=== PATIENT | female | born 1980 | race Asian ===

== ENCOUNTER 2016-04-15 06:15 | Inpatient (IN) | payer OTHER ==
[~2016-04-15] VITALS: Ht 152.4 cm; Wt 58.5 kg
[2016-04-15 07:11] LABS: HEMATOCRIT 38.4 % (36.0-47.0); HEMOGLOBIN 12.6 g/dL (12.0-15.5); RED BLOOD COUNT 4.68 x10^6/uL (3.50-5.40); RED CELL DISTRIBUTION WIDTH 17.4 % (11.5-14.5); WHITE BLOOD COUNT 6.8 x10^3/uL (4.0-11.0)
[2016-04-15] MEDS ORDERED: BUTORPHANOL 2 MG VIAL. IV PRN (07:15)
[2016-04-15] MEDS ORDERED: LIDOCAINE 1% PF 30 ML VIAL. INJ PRN (07:15)
[2016-04-15] MEDS ORDERED: OXYTOCIN 30 UNIT/500 ML PREMIX 500 ML IV PRN (07:15)
[2016-04-15] MEDS ORDERED: 0.9 % SODIUM CHLORIDE 10 ML DISP.SYRIN. IV PRN (07:15)
[2016-04-15] MEDS ORDERED: TERBUTALINE 1 MG/ML VIAL. SQ PRN (07:15)
[2016-04-15] MEDS ORDERED: IBUPROFEN 600 MG TABLET. PO PRN (07:15)
[2016-04-15] MEDS ORDERED: FENTANYL PF 100 MCG/2 ML VIAL. IV PRN (07:15)
[2016-04-15] MEDS ORDERED: ONDANSETRON PF 4 MG/2 ML VIAL. IV PRN (07:15)
[2016-04-15 07:36] LABS: CALCIUM 8.4 mg/dL (8.5-10.1); CREATININE 0.4 mg/dL (0.6-1.0); GFR 183.8; POTASSIUM 3.6 mmol/L (3.5-5.1)
[2016-04-15 07:42] LABS: ALBUMIN 2.9 g/dL (3.4-5.0); ALBUMIN/GLOBULIN RATIO 0.8 (1.0-1.7); TOTAL BILIRUBIN 0.4 mg/dL (0.2-1.0); TOTAL PROTEIN 6.7 g/dL (6.4-8.2)
[2016-04-15] MEDS: OXYTOCIN 30 UNIT/500 ML PREMIX 500 ML IV PRN (07:42)
[2016-04-15 07:53] VITALS: BP 99/63
[2016-04-15] MEDS: IV RINGERS,LACTATED 1000ML 1,000 ML IV SCH (13:05)
[2016-04-15] MEDS ORDERED: DINOPROSTONE 10 MG SUPP.VAG VG ONE (20:00)
[2016-04-16] MEDS ORDERED: OXYTOCIN in NORMAL SALINE PREMIX 30 UNIT/500 ML BAG. IV ONE (07:00)
[2016-04-16] MEDS: IV RINGERS,LACTATED 1000ML 1,000 ML IV SCH ×2 (08:37→11:13)
[2016-04-16] MEDS ORDERED: ROPIVacaine 0.2% IN 0.9%NACL PF 40 MG/20 ML DISP.SYRIN. ONE (09:59)
[2016-04-16] MEDS ORDERED: ROPIVacaine 0.2% PF 10 ML VIAL. EPI ONE (10:00)
[2016-04-16] MEDS ORDERED: EPHEDRINE PF IN SALINE 50 MG/5 ML DISP.SYRIN. IV PRN (10:00)
[2016-04-16] MEDS ORDERED: FENTANYL PF 100 MCG/2 ML VIAL. EPI ONE (10:00)
[2016-04-16] MEDS ORDERED: L&D EPIDURAL CASSETTE 100 ML EP PRN (10:00)
[2016-04-16] MEDS ORDERED: ONDANSETRON PF 4 MG/2 ML VIAL. IV PRN (10:00)
[2016-04-16] MEDS ORDERED: NALOXONE 0.4 MG/ML VIAL. IV PRN (10:00)
[2016-04-16] MEDS: OXYTOCIN 30 UNIT/500 ML PREMIX 500 ML IV PRN (11:13)
[2016-04-16] MEDS ORDERED: MAGNESIUM HYDROXIDE 2,400 MG/30 ML ORAL.SUSP. PO PRN (14:30)
[2016-04-16] MEDS ORDERED: DIPHENHYDRAMINE HCL 25 MG CAPSULE PO PRN (14:30)
[2016-04-16] MEDS ORDERED: 0.9 % SODIUM CHLORIDE 10 ML DISP.SYRIN. IV PRN (14:30)
[2016-04-16] MEDS ORDERED: OXYTOCIN 30 UNIT/500 ML PREMIX 500 ML IV PRN (14:30)
[2016-04-16] MEDS ORDERED: ZOLPIDEM 5 MG TABLET. PO PRN (14:30)
[2016-04-16] MEDS ORDERED: HYDROCORTISONE 1% TOPICAL OINTMENT 30GM TUBE. TP PRN (14:30)
[2016-04-16] MEDS ORDERED: ACETAMINOPHEN 325 MG TABLET. PO PRN (14:30)
[2016-04-16] MEDS ORDERED: SIMETHICONE 80 MG TAB.CHEW PO PRN (14:30)
[2016-04-16] MEDS ORDERED: MAG HYDROX/ALUMINUM HYD/SIMETH 30 ML ORAL.SUSP PO PRN (14:30)
--- NOTE | 2016-04-16 15:04 | PDOC1 ---
OB - History Hx of Present Care: Good Care Ultrasounds: Normal mid trimester US Obstetrical Complications: None Medical Complications: Cardiovascular Past Family/Social History * Past Medical, Surgical, Family and Obstetric Histories reviewed from chart. Blood Type: B+ Rubella: Immune RPR/VDRL: Negative GBS Status: Negative HBsAG: Negative OB - Chief Complaint & HPI Date of Admission: Date of Admission: Apr 15, 2016 at 06:15 Chief Complaint/History : 4 Para: 3 EDC: Apr 16, 2016 Reason for admission: induction of labor Indication for induction: other Admission Nurse Assessment Rev: Yes Problems: OB - Admission Exam Physical Exam Vitals: VS - Last 72 Hours, by Label Date Time Temp Pulse Resp B/P Pulse Ox O2 Delivery O2 Flow Rate FiO2 04/16/16 10:33 20 04/16/16 10:32 20 04/15/16 07:53 98.1 20 99/63 98.1 HEENT: Normal, Nasal Mucosa Normal, Oropharynx Normal, Moist Membranes, Fontanelles Normal Heart: Regular Rate Lungs: Clear, Equal Abdomen: Gravid Extremities: Normal Pulses, No tenderness or swelling Cervical Dilatation: 2cm Effacement: 50% Station: Ballotable Membranes: Intact Amniotic Fluid: Clear Heart Rate: Normal Accelerations: Accelerations Present Intensity: Moderate Assessment/Plan Assessment/Plan TIUP Induction ACSVD ELIZABETH CRAWFORD MD Apr 16, 2016 15:04
--- NOTE | 2016-04-16 15:06 | PDOC ---
VAGINAL DELIVERY DATE DATE: 04/16/16 TIME: 15:04 : 4 EDC: Apr 16, 2016 VAGINAL DELIVERY: VTX VACCUM ASSISTED: Yes NUMBER OF PULLS 1 NUMBER OF POP OFFS 0 PLACENTA: Spontaneous SEX: Male WEIGHT 08/16 Nuchal Cord: No Amniotic Fluid: Clear PAIN: Epidural EPISIOTOMY: No EXTENSION: Yes EBL 300cc COMPLICATIONS None CONDITION Stable Signs of Intrauterine Infectio: None Shoulder Dystocia: No DIAGNOSIS TIUP del Problems: ELIZABETH CRAWFORD MD Apr 16, 2016 15:06
[2016-04-16] MEDS ORDERED: FERROUS SULFATE 325 MG TABLET PO SCH (17:00)
[2016-04-16] MEDS: PHENYLEPH/MINERAL OIL/PETROLAT RECTAL OINTMENT 28GM TUBE. RC PRN (17:38)
[2016-04-16] MEDS: BENZOCAINE 20% TOPICAL AEROSOL SPRAY 57GM CAN. TP PRN (17:38)
[2016-04-16 18:46] VITALS: BP 102/68
[2016-04-16 20:00] VITALS: BP 102/56
[2016-04-16] MEDS: HYDROCODONE/APAP 5/325MG TABLET. PO PRN (22:22)
[2016-04-16] MEDS: IBUPROFEN 800 MG TABLET. PO SCH (23:53)
[2016-04-17 00:15] VITALS: BP 107/64
[2016-04-17] MEDS: HYDROCODONE/APAP 5/325MG TABLET. PO PRN ×6 (05:07→22:00)
[2016-04-17 05:10] VITALS: BP 107/60
--- NOTE | 2016-04-17 07:54 | PDOC ---
Provider Note Provider Note Doing well VSS Uterus NTTP FU in AM ELIZABETH CRAWFORD MD Apr 17, 2016 07:54
[2016-04-17] MEDS: IBUPROFEN 800 MG TABLET. PO SCH ×2 (08:41→17:25)
[2016-04-17 10:56] VITALS: BP 100/55
[2016-04-17 13:08] VITALS: BP 87/60
[2016-04-17] MEDS ORDERED: INFLUENZA VAX SCREEN BY RX. MC ONE (14:30)
[2016-04-17] MEDS ORDERED: DIPHTH,PERTUSS(ACELL),TET TOX 0.5 ML DISP.SYRIN. VAX IM ONE (14:30)
[2016-04-17] MEDS ORDERED: FLU VACC QUAD 2016-17 (36MOS+)/PF 0.5 ML SYRINGE. VAX IM ONE (14:30)
--- NOTE | 2016-04-17 15:01 | OP ---
DATE OF SURGERY: 04/16/2016 DESCRIPTION OF PROCEDURE: Secondary to the patient's language barrier ____ epidural, inability to push, elective operative delivery was performed with kiwi vacuum. The pelvis was assessed and the infant was in KATERINA position. Bladder was empty. Kiwi retractor was applied. With maternal effort, the was delivered over a second degree laceration without any difficulties. cried spontaneously and moved all extremities, was bulb suctioned ____ and delivered in the usual fashion. Cord was doubly clamped. Father transected the cord between two clamps. The was handed to nursing care in attendance and placed on the abdomen. Cord blood samples were taken. Placenta delivered spontaneously intact, 3-vessel cord. During the pushing effort, the patient had prolapsed internal hemorrhoid that was approximately 2 x 2 cm, approximately the size of a golf ball. This was then incised with a scalpel, minimum amount of blood was returned at this time, hemorrhoidectomy was performed in the usual manner. The edges of the hemorrhoid was identified and grasped with hemostats, radial excisional biopsy was performed of the hemorrhoid and the base was reapproximated with 3-0 Vicryl in an interrupted manner, tagging each corner of the hemorrhoid and reapproximated in the usual fashion. Good reapproximation was noted. The patient would be placed on stool softeners. The procedure was terminated. Sponge, needle and instrument counts were correct times 2 per nursing staff. ELIZABETH CRAWFORD MD DR: MARIANNE/babita JOB#: [id number] / [id number]
[2016-04-17 17:53] VITALS: BP 102/52
[2016-04-17] MEDS ORDERED: HYDROCORTISONE ACETATE 25 MG SUPP.RECT PR PRN (20:15)
[2016-04-17 22:00] VITALS: BP 117/71
[2016-04-17] MEDS: SENNOSIDES/DOCUSATE 8.6/50MG TABLET. PO PRN (22:00)
[2016-04-18] MEDS: HYDROCODONE/APAP 5/325MG TABLET. PO PRN ×5 (02:21→20:26)
[2016-04-18] MEDS: IBUPROFEN 800 MG TABLET. PO SCH ×2 (05:47→16:21)
[2016-04-18] MEDS: SENNOSIDES/DOCUSATE 8.6/50MG TABLET. PO PRN (06:11)
[2016-04-18 06:16] VITALS: BP 105/72
[2016-04-18 08:00] VITALS: BP 98/58
[2016-04-18] MEDS: HYDROCORTISONE ACETATE 25 MG SUPP.RECT PR SCH ×2 (11:17→20:27)
[2016-04-18] MEDS: BENZOCAINE 20% TOPICAL AEROSOL SPRAY 57GM CAN. TP PRN (11:23)
[2016-04-18 16:25] VITALS: BP 100/65
--- NOTE | 2016-04-18 17:38 | PATHOLOGY ---
PATHOLOGY REPORT * * * * * * * * FINAL DIAGNOSIS: Skin and squamous mucosa, hemorrhoid removal: - Hemorrhoids. (JPM:; d/t: 04/18/16) REPORT ELECTRONICALLY SIGNED BY: Cecilio Flores M.D. DATE/TIME: 04/18/2016 17:38 * * * * * * * * GROSS PATHOLOGY: Received in formalin labeled "Gisella Salinas and hemorrhoid," are 2 segments of rothman-pink epithelial covered tissue measuring 0.8 x 0.5 x 0.4 cm and 2.0 x 1.5 x 1.3 cm in maximum dimensions. The epithelial surfaces appear intact, without grossly apparent lesions. On cut section, the subepithelial tissue has an edematous appearance. [employer] tissue is submitted in cassette A1. (TTL; 04/17/2016) INITIAL CPT CODE(S): A; 45095 Professional services [place] [address] Technical services performed by [facility] at [address] [place] [address] [address] [address]. SPECIMEN(S) RECEIVED: A.Hemorrhoid CLINICAL HISTORY: Vaginal delivery with removal of hemorrhoid PATIENT: GISELLA SALINAS /AGE: 405/20/1980 (Age: 35) PATIENT #: [id number] ALT CASE #: SPECIMEN COLLECTION DATE: 04/16/2016 SPECIMEN RECEIVED DATE: 04/17/2016 [facility] - [address] [place] [address] - PHONE: [phone] * * * END OF REPORT * * *
[2016-04-18 23:06] VITALS: BP 96/60
[2016-04-19] MEDS: IBUPROFEN 800 MG TABLET. PO SCH (02:51)
[2016-04-19 05:30] VITALS: BP 107/68
--- NOTE | 2016-04-19 08:45 | PDOC ---
Provider Note Provider Note Much better VSS uterus NTTP DC home ELIZABETH CRAWFORD MD Apr 19, 2016 08:45
--- NOTE | 2016-04-19 09:07 | PDOC ---
Provider Note Provider Note Late entry 04/18/16 Having considerable pain from hemorrhoids VSS Continue current tx FU in AM ELIZABETH CRAWFORD MD Apr 19, 2016 09:07
--- NOTE | 2016-04-19 09:12 | PDOC3 ---
OB DISCHARGE SUMMARY DATE OF ADMISSION: 04/16/16 DATE OF DISCHARGE: 04/19/16 REASON FOR ADMISSION: Induction of labor PROCEDURES: Ultrasound INTRAPARTUM PROCEDURES: Vacum Extraction, Others (hemorrhoidectomy) PROCEDURES: None OPERATIONS: None DISCHARGE DIAGNOSIS: Term Delivered DISCHARGE INFORMATION: Activity, Diet HOSPITAL COURSE Unremarkable CONDITION AT DISCHARGE Stable ELIZABETH CRAWFORD MD Apr 19, 2016 09:12
[2016-04-19] MEDS ORDERED: NAPR500T3 PO (09:14)
[2016-04-19] MEDS ORDERED: HYDR25SU18 RC (09:14)
[2016-04-19] MEDS ORDERED: HYDR30CR61 TP (09:14)
[2016-04-19] MEDS ORDERED: HYDR-971 PO (09:14)
[2016-04-19] MEDS: SENNOSIDES/DOCUSATE 8.6/50MG TABLET. PO PRN (09:16)
[2016-04-19] MEDS: HYDROCODONE/APAP 5/325MG TABLET. PO PRN ×2 (09:17→13:52)
[2016-04-19 11:20] VITALS: BP 104/64
[2016-04-19] MEDS: BENZOCAINE 20% TOPICAL AEROSOL SPRAY 57GM CAN. TP PRN (13:51)
[2016-04-19] MEDS: PHENYLEPH/MINERAL OIL/PETROLAT RECTAL OINTMENT 28GM TUBE. RC PRN (13:51)
[2016-04-19 14:30] VITALS: BP 103/68
== END 2016-04-19 15:00 | disposition home or self-care (01) | DRG 768 ==
LOC: 3 SO LND 06:15 → 3 NORTH 04-16 18:00
PROVIDERS: ADMIT Specialist; ATTEND Specialist
PROC: 3E033VJ Introduction of Other Hormone into Peripheral Vein, Percutaneous Approach (ICD-10-PCS; principal; 2016-04-17)
PROC: 06BY0ZC Excision of Hemorrhoidal Plexus, Open Approach (ICD-10-PCS; 2016-04-17)
PROC: 10D07Z6 Extraction of Products of Conception, Vacuum, Via Natural or Artificial Opening (ICD-10-PCS; 2016-04-17)
PROC: 0KQM0ZZ Repair Perineum Muscle, Open Approach (ICD-10-PCS; 2016-04-17)
PROC: 3E0S3CZ (ICD-10-PCS; 2016-04-17)
PROC: 00HU33Z Insertion of Infusion Device into Spinal Canal, Percutaneous Approach (ICD-10-PCS; 2016-04-17)
DX: O70.1 Second degree perineal laceration during delivery (principal); Z37.0 Single live birth; O22.43 Hemorrhoids in pregnancy, third trimester; Z3A.40 40 weeks gestation of pregnancy
CPT/HCPCS: 36415; 80053; 85014; 85027; 86593; 86850; 86900; 86901; 88304; 90686; J2590; J2795; J3010; J7120